=== PATIENT | female | born 1995 | race American Indian/Alaskan Native ===

== ENCOUNTER 2021-05-04 09:10 | Outpatient (CLI) | payer OTHER ==
[2021-05-04] MEDS ORDERED: LACTATED RINGERS 500 ML IV ONE (09:12)
[2021-05-04 11:35] VITALS: BP 139/78
--- NOTE | 2021-05-04 12:52 | Ultrasound Report ---
US OB limited INDICATION: r/o placental abruption, vaginal bleeding. COMPARISON: None available. FINDINGS: position is cephalic and heart rate measures 149 bpm. Placenta is fundal and grade 0. There is no appreciable placental abruption. Signer Name: Latrell Reyna MD Signed: 05/04/2021 12:48 PM Workstation Name: [id number]
== END 2021-05-04 12:10 | disposition home or self-care (01) ==
LOC: EDBD 09:10 → TRG 09:10 → APU 09:11 → TRG 12:10
PROVIDERS: ATTEND Obstetrics & Gynecology
DX: O47.03 False labor before 37 completed weeks of gestation, third trimester (principal); Z3A.29 29 weeks gestation of pregnancy
CPT/HCPCS: 59025; 76815

== ENCOUNTER 2021-07-02 14:35 | Inpatient (IN) | payer OTHER ==
[2021-07-02] MEDS ORDERED: LACTATED RINGERS 1,000 ML ONE (14:42)
[2021-07-02 16:30] LABS: Hematocrit 36.7 % (30.3-42.9); Hemoglobin 12.4 gm/dl (10.1-14.3); Mean Corpuscular HGB Conc 34 % (30-34); Mean Corpuscular Volume 83 fl (79-97); Platelet Count 224 K/mm3 (140-440); Red Blood Count 4.43 M/mm3 (3.65-5.03); Red Cell Distribution Width 16.1 % (13.2-15.2)
[2021-07-02 16:52] LABS: Alanine Aminotransferase 7 units/L (7-56); Uric Acid 3.9 mg/dL (3.5-7.6)
[2021-07-02] MEDS ORDERED: BUTORPHANOL 2 MG/1 ML INJ IV PRN (17:31)
[2021-07-02] MEDS ORDERED: OXYTOCIN 10 UNIT/1 ML INJ IM PRN (17:31)
[2021-07-02] MEDS ORDERED: ACETAMINOPHEN 325 MG TAB PO PRN (17:31)
[2021-07-02] MEDS ORDERED: LIDOCAINE (2%) 20 MG/1 ML VIAL 20 ML MDV INFILTRATI ONE (17:31)
[2021-07-02] MEDS ORDERED: LOPERAMIDE 2 MG CAP PO PRN (17:31)
[2021-07-02] MEDS ORDERED: METHYLERGONOVINE MALEATE 0.2 MG/ML VIAL IM PRN (17:31)
[2021-07-02] MEDS ORDERED: ONDANSETRON 4 MG/2 ML INJ IV PRN (17:31)
[2021-07-02] MEDS ORDERED: MINERAL OIL 30 ML ORAL LIQD PO PRN (17:31)
[2021-07-02] MEDS ORDERED: ePHEDrine SULFATE 50 MG/1 ML INJ IV PRN (17:31)
[2021-07-02] MEDS ORDERED: miSOPROStol 200 MCG TAB PR PRN (17:31)
[2021-07-02] MEDS ORDERED: NALOXONE 0.4 MG/1 ML INJ IV PRN (17:31)
[2021-07-02] MEDS ORDERED: TERBUTALINE 1 MG/1 ML INJ SUB-Q PRN (17:31)
[2021-07-02] MEDS ORDERED: CARBOPROST TROMETHAMINE 250 MCG/1 ML INJ IM PRN (17:31)
[2021-07-02] MEDS ORDERED: DEXTROSE 50% IN WATER (25GM) 50 ML SYRINGE IV PRN (17:37)
--- NOTE | 2021-07-02 17:44 | History and Physical Report ---
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 Weight (lb): 135 BMI: 22.5 BP: 126/ 82 mm Hg Temp: 98.6 Ur. Protein: negative Ur. Glucose: negative Chief Complaint/Current Status: pt. presents for missed period visit; c/o pain on right side of abdomen when sneezing, morning sickness no apetite and bleeding during intercourse. Last pap smear was November 2019 w/normal results per pt. Pt. mentioned that she use to smoke and drink. Pt. mentioned that she has hypertension. Mask, Patient denies fever, cough, shortness of breath and exposure to COVID-19. .............................. .......................................Denae Pagan December 09, 2020 10:50 AM Cervical Cancer Screening Guidelines given to pt. .....................................................................Denae Pagan December 09, 2020 10:59 AM This is a 25 years old female who presents with pelvic pain. The patient presents with RLQ pain and amenorrhea. Patient also complains of nausea and vomiting. Past History : 2 Spont. Ab: 1 # 1 Delivery date: 12/23/2016 Weeks Gestation: 22 Delivery type: Delivery location: [place], [place] Comments: She had severe N/V then had vaginal bleeding and SROM, Admitted for 2days, cervix 4-5cm then given "contraction medicine" and delivered. Past Medical History: Reviewed and updated today: Hypertension: (08/2020) She wasn't feeling well, went to ED in [place], elevated BP and started on ?nifidepine. Ran out of medication however PCP did not given her a refill Past Surgical History: Reviewed and updated today: Negative Past Surgical History Family History Summary: Other Family Member - Has No Family History of Uterine Cancer - Entered On: 12/09/2020 Other Family Member - Has No Family History of Stomach Cancer - Entered On: 12/09/2020 Other Family Member - Has No Family History of Spontaneous DVT-PE - Entered On: 12/09/2020 Other Family Member - Has No Family History of Small Bowel Cancer - Entered On: 12/09/2020 Other Family Member - Has No Family History of Pancreatic Cancer - Entered On: 12/09/2020 Other Family Member - Has No Family History of Kidney/Urinary Tract Cancer - Entered On: 12/09/2020 Other Family Member - Has No Family History of Colon Cancer - Entered On: 12/09/2020 Other Family Member - Has No Family History of Breast Cancer - Entered On: 12/09/2020 Other Family Member - Has No Family History of Brain Cancer - Entered On: 12/09/2020 Other Family Member - Has No Family History of Biliary Tract Cancer - Entered On: 12/09/2020 MGM - Has Family History of Ovarian Cancer - Diagnosed and at age 61. Mother negative BRCA - Entered On: 12/09/2020 Social History: Patient is single Smoking History: Patient is a former smoker. Risk Factors: Smoked Tobacco Use: Former smoker Cigarettes: Yes Year Quit: 2020 Years Since Last Quit: 0 HIV High Risk Behavior: no Exercise: no Seatbelt Use: 100 % No Dietary Counseling Reason: pn yes Alcohol Use: no Drug Use: no Past Medical History Surgery (Non-rickshaw driver): Negative Past Surgical History Abnormal PAP: negative Social Hx: Patient is single Smoking History: Patient is a former smoker. Infection History Hx of STD: none HIV Risk Eval: no Varicella/Chicken Pox Status: Previous Disease TB Risk: no Genetic History Congenital Heart Defect: Mom: no Dad: no Odin Disease: Mom: no Dad: no Thalassemia Mom: no Dad: no Neural Tube Defect Mom: no Dad: no Down's Syndrome Mom: no Dad: no Sadi-Sachs Mom: no Dad: no Sickle Cell Disease/Trait Mom: no Dad: no Hemophilia Mom: no Dad: no Muscular Dystrophy Mom: no Dad: no Cystic Fibrosis Mom: no Dad: no Shadia Chorea Mom: no Dad: no Mental Retardation Mom: no Dad: no Fragile X Mom: no Dad: no Other Genetic/Chromosomal Disorder Mom: no Dad: no Child w/other defect Mom: no Dad: no Enviromental Exposures Enviromental Exposures Reviewed Xray Exposure: no Medication, drug, or alcohol use since LMP: no Chemical/Other Exposure: no Exposure to Cat Liter: yes Hx of Parvovirus (Fifth Disease): no Occupational Exposure to Children: other Comments: Works from home Active Medications: None Current Allergies (reviewed today): No known allergies Past History Past Medical History: hypertension, other (see HPI) Past Surgical History: no surgical history, other (see HPI) 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: other (see HPI) Family/Genetic History: cancer, other (see HPI) Social history: single, smoking (former smoker), other (see HPI) - Obstetrical History Expected Date of Delivery: 07/25/21 Actual Gestation: 36 Week(s) 5 Day(s) : 2 Para: 1 Hx # Term Pregnancies: 0 Number of Pregnancies: 1 Spontaneous Abortions: 0 Induced : 0 Number of Living Children: 0 Medications and Allergies Allergies Allergy/AdvReac Type Severity Reaction Status Date / Time No Known Allergies Allergy Verified 05/04/21 09:24 Home Medications Medication Instructions Recorded Confirmed Last Taken Type Aspirin [Aspirin BABY CHEW TAB] 81 mg PO DAILY 05/04/21 05/04/21 05/03/21 History No.137/Iron/Folic Acd 1 tab PO DAILY 05/04/21 05/04/21 05/03/21 History [[facility] Vitamins Tablet] Active Meds: Active Medications Carboprost Tromethamine (Carboprost Tromethamine 250 Mcg/1 Ml Inj) 250 mcg IM ONCE PRN PRN Reason: Uterine Bleeding Ephedrine Sulfate (Ephedrine Sulfate 50 Mg/1 Ml Inj) 10 mg IV Q2M PRN PRN Reason: Hypotension Oxytocin/Sodium Chloride (Pitocin/Ns 30 Unit/500ml) 30 units in 500 mls @ 2 mls/hr IV TITR JERO; Protocol Lactated Ringer's (Lactated Ringers) 1,000 mls @ 125 mls/hr IV DIRECT JERO Oxytocin/Sodium Chloride (Pitocin/Ns 30 Unit/500ml) 30 units in 500 mls @ 40 mls/hr IV TITR JERO; Protocol Lidocaine (Lidocaine (2%) 20 Mg/1 Ml Vial 20 Ml Mdv) 20 ml INFILTRATI ONCE ONE Stop: 07/02/21 17:32 Loperamide HCl (Loperamide 2 Mg Cap) 2 mg PO ONCE PRN PRN Reason: give with Hemabate Methylergonovine Maleate (Methylergonovine Maleate 0.2 Mg/Ml Vial) 0.2 mg IM ONCE PRN PRN Reason: Uterine Bleeding Mineral Oil (Mineral Oil 30 Ml Oral Liqd) 30 ml PO QHS PRN PRN Reason: Constipation Misoprostol (Misoprostol 200 Mcg Tab) 800 mcg NE ONCE PRN PRN Reason: Uterine Bleeding Oxytocin (Oxytocin 10 Unit/1 Ml Inj) 10 unit IM ONCE PRN PRN Reason: Uterine Bleeding Terbutaline Sulfate (Terbutaline 1 Mg/1 Ml Inj) 0.25 mg SUB-Q ONCE PRN PRN Reason: Hyperstimulation/Hypertonicity Review of Systems All systems: negative Genitourinary: contractions - Vital Signs Vital signs: Vital Signs Pulse Ox 90 05/04/21 12:06 Temp Pulse Resp BP Pulse Ox 98.3 F 90 134/94 98 07/02/21 15:16 07/02/21 17:38 07/02/21 17:38 07/02/21 17:34 - Physical Exam Breasts: Positive: deferred Cardiovascular: Regular rate Lungs: Positive: Normal air movement Abdomen: Positive: normal appearance, soft. Negative: distention, tenderness, guarding Genitourinary (Female): Positive: normal external genitalia, normal perenium Vulva: both: normal Vagina: Positive: normal moisture Uterus: Positive: normal size, normal contour, other (gravid) Anus/Rectum: Positive: normal perianal skin, heme negative Extremities: Positive: normal - Obstetrical FHR: auscultation normal, category 1 Uterine Contraction Monitor Mode: External Cervical Dilatation: 3.5 Cervical Effacement Percentage: 80 station: -2 Uterine Tone Measurement Phase: Resting Results Result Diagrams: 07/02/21 15:55 07/02/21 15:55 Abnormal lab results 07/02/21 07/02/21 Range/Units 15:55 15:55 RDW 16.1 H (13.2-15.2) % Creatinine 0.5 L (0.6-1.2) mg/dL Lactate Dehydrogenase 296 H (91-180) units/L All other labs normal. Tests: (1) Ct, Ng, Trich vag by SISSY ([id number]) Order Note: Clinical Information: SRC:VR SRC:UR Chlamydia by SISSY [A] Positive Negative *1------> treated on 06/29/21, pt confirms she took full one time dose of 2 pills Gonococcus by SISSY Negative Negative *2 Trich vag by SISSY [A] Positive Negative *3-------> treated 06/29/21, pt confirms she took full one time dose of 4 pills Tests: (2) Strep Gp B SISSY ([id number]) ! Strep Gp B SISSY Negative Negative *4 Tests: (1) Profile I ([id number]) HBsAg Screen Negative Negative *1 RPR Non Reactive Non Reactive *2 Rubella Antibodies, IgG 5.36 index Immune >0.99 *3 Non-immune <0.90 Equivocal 0.90 - 0.99 Immune >0.99 ABO Grouping B *4 Rh Factor Positive *5 Please note: Prior records for this patient's ABO / Rh type are not available for additional verification. Antibody Screen Negative Negative *6 WBC 6.3 x10E3/uL 3.4-10.8 *7 RBC 4.56 x10E6/uL 3.77-5.28 *8 Hemoglobin 12.8 g/dL 11.1-15.9 *9 Hematocrit 38.7 % 34.0-46.6 *10 MCV 85 fL 79-97 *11 MCH 28.1 pg 26.6-33.0 *12 MCHC 33.1 g/dL 31.5-35.7 *13 RDW 13.1 % 11.7-15.4 *14 Platelets 228 x10E3/uL 150-450 *15 Neutrophils 65 % Not Estab. *16 Lymphs 24 % Not Estab. *17 Monocytes 8 % Not Estab. *18 Eos 2 % Not Estab. *19 Basos 0 % Not Estab. *20 ! Immature Cells <No Reported Value> *21 Neutrophils (Absolute) 4.1 x10E3/uL 1.4-7.0 *22 Lymphs (Absolute) 1.5 x10E3/uL 0.7-3.1 *23 Monocytes(Absolute) 0.5 x10E3/uL 0.1-0.9 *24 Eos (Absolute) 0.2 x10E3/uL 0.0-0.4 *25 Baso (Absolute) 0.0 x10E3/uL 0.0-0.2 *26 ! Immature Granulocytes 1 % Not Estab. *27 ! Immature Grans (Abs) 0.0 x10E3/uL 0.0-0.1 *28 ! NRBC <No Reported Value> *29 Hematology Comments: <No Reported Value> *30 Tests: (2) Comp. Metabolic Panel (14) ([id number]) Glucose 68 mg/dL 65-99 *31 BUN 8 mg/dL 6-20 *32 Creatinine [L] 0.55 mg/dL 0.57-1.00 *33 ! eGFR If NonAfricn Am 131 mL/min/1.73 >59 *34 ! eGFR If Africn Am 151 mL/min/1.73 >59 *35 [facility] currently reports eGFR in compliance with the current recommendations of the National Kidney Foundation. [facility] will update reporting as new guidelines are published from the NKF-ASN Task force. BUN/Creatinine Ratio 15 01- *36 Sodium 136 mmol/L 134-144 *37 Potassium 4.3 mmol/L 3.5-5.2 *38 Chloride 102 mmol/L 96-106 *39 Carbon Dioxide, Total 21 mmol/L 20-29 *40 Calcium 10.2 mg/dL 8.7-10.2 *41 Protein, Total 7.4 g/dL 6.0-8.5 *42 Albumin 4.4 g/dL 3.9-5.0 *43 Globulin, Total 3.0 g/dL 1.5-4.5 *44 A/G Ratio 1.5 1.2-2.2 *45 Bilirubin, Total 0.2 mg/dL 0.0-1.2 *46 Alkaline Phosphatase 61 IU/L 48-121 *47 Effective January 13, 2021 Alkaline Phosphatase reference interval will be changing to: Age Male Female 0 - 5 days 47 - 127 47 - 127 6 - 10 days 29 - 242 29 - 242 11 - 20 days 109 - 357 109 - 357 21 - 30 days 94 - 494 94 - 494 1 - 2 months 149 - 539 149 - 539 3 - 6 months 131 - 452 131 - 452 7 - 11 months 117 - 401 117 - 401 12 months - 6 years 158 - 369 158 - 369 7 - 12 years 150 - 409 150 - 409 13 years 156 - 435 78 - 227 14 years 114 - 375 64 - 161 15 years 88 - 279 56 - 134 16 years 74 - 207 51 - 121 17 years 63 - 161 47 - 113 18 - 20 years 51 - 125 42 - 106 >20 years 44 - 121 44 - 121 AST (SGOT) 13 IU/L 0-40 *48 ALT (SGPT) 12 IU/L 0-32 *49 Tests: (3) Creatinine Clearance ([id number]) Creatinine, Urine 257.9 mg/dL Not Estab. *50 Creatinine, Ur 24hr [L] 774 mg/24 hr 800-1800 *51 Creatinine Clearance 98 mL/min 88-128 *52 The above range is based on 1.73 square meter average body surface area. Tests: (4) Protein Total, Qn, 24-Hr Urine ([id number]) Protein,Total,Urine 42.9 mg/dL Not Estab. *53 Prot,24hr calculated 129 mg/24 hr 30-150 *54 Tests: (5) HB Solu + Rflx Frac ([id number]) Hemoglobin (Hgb) Solubility Negative Negative *55 Tests: (6) HIV Ag/Ab with Reflex ([id number]) HIV Screen 4th Generation wRfx Non Reactive Non Reactive *56 Tests: (7) HCV Antibody reflex to SISSY ([id number]) HCV Ab 0.2 s/co ratio 0.0-0.9 *57 Tests: (8) Interpretation: ([id number]) ! Interpretation: SPRCS *58 Negative Not infected with HCV, unless recent infection is suspected or other evidence exists to indicate HCV infection. Assessment and Plan Pt presents for direct admit from [facility] for IOL. Pt confirms she has not had sexual intercourse since completing STD treatment on 06/29/21. Per Dr. Marie, BP today 159/118 and 148/108 with pt c/o blurred vision. US today WNL and cephalic, EFW 6lbs 4oz on 06/18; Dr. Marie to fax consult note to unit. Pt denies all complaints except contractions at this time. SVE performed. BP elevated s/p SVE. Repeat BP 15 mins later reviewed and stable. External monitors adjusted; Cat 1 FHT's. POC d/w pt. Questions encouraged and addressed. Pt verbalizes understanding and agrees to POC. RN at bedside verbalizes understanding and agrees to POC. Dr Trejo aware. - Patient Problems (1) 36 to 37 weeks gestation of Current Visit: Yes Status: Acute Plan to address problem: admit to labor draw admission labs continuous monitoring Pitocin per protocol anticipate (2) Hypertension affecting in third trimester Current Visit: Yes Status: Acute Plan to address problem: monitor BP and for ssx of worsening condition Preeclampsia labs ordered for admission Labetalol 100mg BID ordered (3) Gestational diabetes mellitus (GDM) in childbirth, diet controlled Current Visit: Yes Status: Acute Plan to address problem: Accuchecks q6h Sliding scale insulin ordered Nutritional consult
[2021-07-02] MEDS ORDERED: OXYTOCIN DRIP 30 UNITS/500 ML BAG IV SCH ×2 (18:00)
[2021-07-02] MEDS ORDERED: INSULIN REGULAR, HUMAN 100 UNITS/1 ML SUB-Q SCH (18:00)
[2021-07-02 18:48] LABS: Bacteria,Urine 1+ /HPF (Negative); Mucus,Urine FEW /HPF; RBC,Urine < 1.0 /HPF (0.0-6.0)
[2021-07-02 18:49] LABS: Color,Urine Colorless (Yellow)
[2021-07-02 18:54] LABS: Bilirubin,Urine Negative (Negative)
[2021-07-02 18:55] LABS: Blood,Urine Trace (Negative)
[2021-07-02 18:57] LABS: Urobilinogen,Urine < 2.0 mg/dL (<2.0)
[2021-07-02 19:23] LABS: Creatinine,Urine 45.8 mg/dL (0.1-20.0); Protein/Creatinine Ratio,Urine 0.31
[2021-07-02] MEDS: LACTATED RINGERS 1,000 ML IV SCH (21:38)
[2021-07-02] MEDS: NalbUPHINE 10 MG/1 ML INJ IV PRN (23:10)
[2021-07-03] MEDS ORDERED: MAGNESIUM SULFATE 4 GM/100 ML BAG IV ONE (04:23)
[2021-07-03] MEDS: MAGNESIUM SULFATE 40GM/1000ML 40 GM/1,000 ML BAG IV SCH (05:34)
--- NOTE | 2021-07-03 07:55 | Progress Note ---
Assessment and Plan A: Upon entering room, pt resting right lateral in bed. +FM, denies vaginal bleeding, and LOF, chest pain, SOB, headaches, blurred vision, spots before eyes, RUQ, and NVD. Cat 1 tracing. Magnesium, LR and pitocin infusing @4mu. Mild range BPs. Intact Del Toro draining clear yellow urine. SVE: unchanged (/-2 @0245 per RN). cHTN superimposed on Pre E. P: Continue titration of pitocin (order changed from low dose pitocin to standard dose, 4x4). Monitor BG per protocol. Increase labetalol to 200mg BID. Strict I&Os. Monitor for signs and symptoms of worsening preeclampsia. Pt declining epidural. IV analgesia for pain management. Position change to high [place]. Anticipate . Subjective - Subjective Date of service: 07/03/21 (0745) Principal diagnosis: IUP @ 36.6 wks, IOL d/t GDM, superimposed preeclampsia w/ severe features Patient reports: movement normal Objective - Vital Signs Vital Signs: Vital Signs - 12hr 07/02/21 07/02/21 07/02/21 19:48 19:53 19:58 Temperature Pulse Rate 107 H 103 H 96 H Blood Pressure 145/90 O2 Sat by Pulse 98 97 97 Oximetry 07/02/21 07/02/21 07/02/21 20:03 20:08 20:13 Temperature Pulse Rate 106 H 103 H 107 H Blood Pressure 133/90 O2 Sat by Pulse 97 97 97 Oximetry 07/02/21 07/02/21 07/02/21 20:18 20:22 20:23 Temperature Pulse Rate 99 H 95 H 99 H Blood Pressure 131/89 O2 Sat by Pulse 97 96 Oximetry 07/02/21 07/02/21 07/02/21 20:28 20:33 20:38 Temperature Pulse Rate 101 H 99 H 102 H Blood Pressure 138/84 O2 Sat by Pulse 95 96 97 Oximetry 07/02/21 07/02/21 07/02/21 20:43 20:48 20:53 Temperature Pulse Rate 104 H 103 H 100 H Blood Pressure 143/89 O2 Sat by Pulse 96 97 98 Oximetry 07/02/21 07/02/21 07/02/21 20:58 21:03 21:08 Temperature Pulse Rate 110 H 107 H 103 H Blood Pressure 134/82 O2 Sat by Pulse 97 97 97 Oximetry 07/02/21 07/02/21 07/02/21 21:13 21:18 21:22 Temperature Pulse Rate 101 H 98 H 93 H Blood Pressure 139/90 O2 Sat by Pulse 97 98 Oximetry 07/02/21 07/02/21 07/02/21 21:23 21:28 21:41 Temperature Pulse Rate 102 H 100 H 115 H Blood Pressure O2 Sat by Pulse 97 97 98 Oximetry 07/02/21 07/02/21 07/02/21 21:46 21:51 21:56 Temperature Pulse Rate 91 H 93 H 95 H Blood Pressure O2 Sat by Pulse 97 98 98 Oximetry 07/02/21 07/02/21 07/02/21 22:01 22:06 22:08 Temperature Pulse Rate 94 H 93 H 91 H Blood Pressure 139/92 O2 Sat by Pulse 99 98 Oximetry 07/02/21 07/02/21 07/02/21 22:11 22:16 22:21 Temperature Pulse Rate 101 H 94 H 102 H Blood Pressure O2 Sat by Pulse 98 97 98 Oximetry 07/02/21 07/02/21 07/02/21 22:26 22:31 22:36 Temperature Pulse Rate 94 H 95 H 99 H Blood Pressure O2 Sat by Pulse 97 97 98 Oximetry 07/02/21 07/02/21 07/02/21 22:39 22:41 22:46 Temperature Pulse Rate 97 H 105 H 102 H Blood Pressure 144/93 O2 Sat by Pulse 98 97 Oximetry 07/02/21 07/02/21 07/02/21 22:51 22:56 23:00 Temperature 98.3 F Pulse Rate 97 H 98 H Blood Pressure O2 Sat by Pulse 97 98 Oximetry 07/02/21 07/02/21 07/02/21 23:01 23:06 23:09 Temperature Pulse Rate 97 H 97 H 101 H Blood Pressure 162/104 O2 Sat by Pulse 97 97 Oximetry 07/02/21 07/02/21 07/02/21 23:11 23:16 23:21 Temperature Pulse Rate 102 H 95 H 109 H Blood Pressure O2 Sat by Pulse 97 96 97 Oximetry 07/02/21 07/02/21 07/02/21 23:26 23:30 23:31 Temperature Pulse Rate 110 H 98 H 101 H Blood Pressure 146/97 O2 Sat by Pulse 97 97 Oximetry 07/02/21 07/02/21 07/02/21 23:36 23:40 23:41 Temperature Pulse Rate 109 H 95 H 90 Blood Pressure 148/92 O2 Sat by Pulse 97 96 Oximetry 07/02/21 07/02/21 07/02/21 23:46 23:51 23:55 Temperature Pulse Rate 92 H 93 H 97 H Blood Pressure 156/101 O2 Sat by Pulse 97 97 Oximetry 07/02/21 07/03/21 07/03/21 23:56 00:01 00:06 Temperature Pulse Rate 104 H 94 H 95 H Blood Pressure O2 Sat by Pulse 96 96 96 Oximetry 07/03/21 07/03/21 07/03/21 00:09 00:11 00:16 Temperature Pulse Rate 94 H 94 H 91 H Blood Pressure 145/91 158/95 O2 Sat by Pulse 96 96 Oximetry 07/03/21 07/03/21 07/03/21 00:21 00:25 00:26 Temperature Pulse Rate 94 H 90 98 H Blood Pressure 152/90 O2 Sat by Pulse 96 96 Oximetry 07/03/21 07/03/21 07/03/21 00:31 00:36 00:40 Temperature Pulse Rate 89 104 H 89 Blood Pressure 156/96 O2 Sat by Pulse 96 96 Oximetry 07/03/21 07/03/21 07/03/21 00:41 00:46 00:51 Temperature Pulse Rate 95 H 96 H 96 H Blood Pressure O2 Sat by Pulse 96 96 96 Oximetry 07/03/21 07/03/21 07/03/21 00:55 00:56 01:01 Temperature Pulse Rate 95 H 100 H 95 H Blood Pressure 154/97 O2 Sat by Pulse 95 96 Oximetry 07/03/21 07/03/21 07/03/21 01:06 01:10 01:11 Temperature Pulse Rate 94 H 89 90 Blood Pressure 156/95 O2 Sat by Pulse 96 97 Oximetry 07/03/21 07/03/21 07/03/21 01:16 01:21 01:25 Temperature Pulse Rate 88 92 H 107 H Blood Pressure 144/90 O2 Sat by Pulse 96 96 Oximetry 07/03/21 07/03/21 07/03/21 01:26 01:31 01:36 Temperature Pulse Rate 85 91 H 109 H Blood Pressure O2 Sat by Pulse 97 96 97 Oximetry 07/03/21 07/03/21 07/03/21 01:40 01:41 01:46 Temperature Pulse Rate 93 H 101 H 92 H Blood Pressure 147/97 O2 Sat by Pulse 96 97 Oximetry 07/03/21 07/03/21 07/03/21 01:51 01:55 01:56 Temperature Pulse Rate 107 H 106 H 95 H Blood Pressure 138/88 O2 Sat by Pulse 98 97 Oximetry 07/03/21 07/03/21 07/03/21 02:04 02:09 02:11 Temperature Pulse Rate 124 H 96 H 93 H Blood Pressure 158/102 O2 Sat by Pulse 98 98 Oximetry 07/03/21 07/03/21 07/03/21 02:14 02:19 02:24 Temperature Pulse Rate 102 H 98 H 97 H Blood Pressure O2 Sat by Pulse 97 97 96 Oximetry 07/03/21 07/03/21 07/03/21 02:25 02:29 02:34 Temperature Pulse Rate 96 H 99 H 100 H Blood Pressure 153/83 O2 Sat by Pulse 96 97 Oximetry 07/03/21 07/03/21 07/03/21 02:39 02:40 02:44 Temperature Pulse Rate 110 H 99 H 104 H Blood Pressure 151/90 O2 Sat by Pulse 96 95 Oximetry 07/03/21 07/03/21 07/03/21 02:49 02:54 02:55 Temperature Pulse Rate 100 H 99 H 100 H Blood Pressure 136/83 O2 Sat by Pulse 95 95 Oximetry 07/03/21 07/03/21 07/03/21 02:59 03:00 03:04 Temperature 98.4 F Pulse Rate 100 H 100 H Blood Pressure O2 Sat by Pulse 96 97 Oximetry 07/03/21 07/03/21 07/03/21 03:09 03:10 03:14 Temperature Pulse Rate 103 H 111 H 105 H Blood Pressure 144/89 O2 Sat by Pulse 98 97 Oximetry 07/03/21 07/03/21 07/03/21 03:19 03:24 03:25 Temperature Pulse Rate 100 H 105 H 98 H Blood Pressure 155/112 O2 Sat by Pulse 96 96 Oximetry 07/03/21 07/03/21 07/03/21 03:29 03:34 03:39 Temperature Pulse Rate 106 H 98 H 129 H Blood Pressure O2 Sat by Pulse 97 98 98 Oximetry 07/03/21 07/03/21 07/03/21 03:41 03:43 03:44 Temperature Pulse Rate 144 H 100 H 102 H Blood Pressure 195/94 171/91 O2 Sat by Pulse 97 Oximetry 07/03/21 07/03/21 07/03/21 03:49 03:54 03:59 Temperature Pulse Rate 98 H 111 H 100 H Blood Pressure 174/102 160/97 O2 Sat by Pulse 97 97 97 Oximetry 07/03/21 07/03/21 07/03/21 04:00 04:04 04:05 Temperature Pulse Rate 99 H 99 H 96 H Blood Pressure 161/105 152/84 O2 Sat by Pulse 96 Oximetry 07/03/21 07/03/21 07/03/21 04:09 04:10 04:14 Temperature Pulse Rate 105 H 100 H 102 H Blood Pressure 150/90 O2 Sat by Pulse 96 96 Oximetry 07/03/21 07/03/21 07/03/21 04:19 04:24 04:26 Temperature Pulse Rate 104 H 105 H 105 H Blood Pressure 148/86 O2 Sat by Pulse 96 96 Oximetry 07/03/21 07/03/21 07/03/21 04:29 04:34 04:39 Temperature Pulse Rate 101 H 98 H 98 H Blood Pressure O2 Sat by Pulse 96 96 95 Oximetry 07/03/21 07/03/21 07/03/21 04:40 04:44 04:49 Temperature Pulse Rate 105 H 102 H 122 H Blood Pressure 137/83 O2 Sat by Pulse 96 96 Oximetry 07/03/21 07/03/21 07/03/21 04:54 04:55 04:56 Temperature Pulse Rate 116 H 114 H 107 H Blood Pressure 132/82 139/87 O2 Sat by Pulse 98 Oximetry 07/03/21 07/03/21 07/03/21 04:59 05:00 05:04 Temperature 98.2 F Pulse Rate 109 H 111 H Blood Pressure O2 Sat by Pulse 97 98 Oximetry 07/03/21 07/03/21 07/03/21 05:09 05:14 05:19 Temperature Pulse Rate 121 H 128 H 114 H Blood Pressure O2 Sat by Pulse 98 97 97 Oximetry 07/03/21 07/03/21 07/03/21 05:24 05:25 05:29 Temperature Pulse Rate 112 H 114 H 111 H Blood Pressure 131/86 O2 Sat by Pulse 97 97 Oximetry 07/03/21 07/03/21 07/03/21 05:34 05:39 05:40 Temperature Pulse Rate 112 H 103 H 106 H Blood Pressure 127/82 O2 Sat by Pulse 97 96 Oximetry 07/03/21 07/03/21 07/03/21 05:44 05:49 05:54 Temperature Pulse Rate 107 H 97 H 105 H Blood Pressure O2 Sat by Pulse 96 96 97 Oximetry 07/03/21 07/03/21 07/03/21 05:55 05:59 06:03 Temperature Pulse Rate 109 H 98 H 102 H Blood Pressure 125/81 O2 Sat by Pulse 95 94 Oximetry 07/03/21 07/03/21 07/03/21 06:04 06:09 06:10 Temperature Pulse Rate 107 H 110 H 107 H Blood Pressure 122/77 O2 Sat by Pulse 95 97 Oximetry 07/03/21 07/03/21 07/03/21 06:14 06:19 06:24 Temperature Pulse Rate 113 H 99 H 100 H Blood Pressure O2 Sat by Pulse 96 95 96 Oximetry 07/03/21 07/03/21 07/03/21 06:26 06:29 06:34 Temperature Pulse Rate 98 H 110 H 108 H Blood Pressure 122/74 O2 Sat by Pulse 97 97 Oximetry 07/03/21 07/03/21 07/03/21 06:39 06:41 06:44 Temperature Pulse Rate 111 H 106 H 110 H Blood Pressure 129/85 O2 Sat by Pulse 96 97 Oximetry 07/03/21 07/03/21 07/03/21 06:49 06:54 06:56 Temperature Pulse Rate 104 H 105 H 103 H Blood Pressure 134/77 O2 Sat by Pulse 95 95 Oximetry 07/03/21 07/03/21 07/03/21 06:59 07:00 07:04 Temperature Pulse Rate 103 H 105 H 116 H Blood Pressure O2 Sat by Pulse 95 94 96 Oximetry 07/03/21 07/03/21 07/03/21 07:09 07:10 07:14 Temperature Pulse Rate 108 H 104 H 103 H Blood Pressure 126/68 O2 Sat by Pulse 95 95 Oximetry 07/03/21 07/03/21 07/03/21 07:19 07:24 07:25 Temperature Pulse Rate 105 H 123 H 117 H Blood Pressure 130/76 O2 Sat by Pulse 95 98 Oximetry 07/03/21 07/03/21 07/03/21 07:29 07:34 07:39 Temperature Pulse Rate 121 H 119 H 114 H Blood Pressure O2 Sat by Pulse 97 98 98 Oximetry 07/03/21 07:41 Temperature Pulse Rate 107 H Blood Pressure 145/92 O2 Sat by Pulse Oximetry - Exam Breasts: deferred Cardiovascular: Regular rate Lungs: Clear to auscultation, Normal air movement Abdomen: Present: normal appearance Vulva: both: normal Uterus: Present: normal FHR: auscultation normal, category 1 Uterine Contraction Monitor Mode: Palpation Cervical Dilatation: 5 Cervical Effacement Percentage: 60 station: -2 Uterine Contraction Frequency (min): q5-8 min Uterine Contraction Duration: 30-45 seconds Uterine Contraction Pattern: Irregular Uterine Tone Measurement Phase: Resting Uterine Contraction Intensity: Mild Extremities: normal - Labs Labs: Abnormal Labs 07/02/21 07/02/21 07/02/21 15:55 15:55 18:30 RDW 16.1 H Creatinine 0.5 L POC Glucose Lactate Dehydrogenase 296 H Urine Creatinine 45.8 H Urine Total Protein 14 H 07/02/21 20:07 RDW Creatinine POC Glucose 107 H Lactate Dehydrogenase Urine Creatinine Urine Total Protein Laboratory Results - last 24 hr 07/02/21 07/02/21 07/02/21 15:55 15:55 15:55 WBC 8.4 RBC 4.43 Hgb 12.4 Hct 36.7 MCV 83 MCH 28 MCHC 34 RDW 16.1 H Plt Count 224 Creatinine 0.5 L Estimated GFR > 60 POC Glucose Uric Acid 3.9 AST 16 ALT 7 Lactate Dehydrogenase 296 H Urine Color Urine Turbidity Urine pH Ur Specific [place] Urine Protein Urine Glucose (UA) Urine Ketones Urine Blood Urine Nitrite Ur Reducing Substances Urine Bilirubin Urine Ictotest Urine Urobilinogen Ur Leukocyte Esterase Urine WBC (Auto) Urine RBC (Auto) U Epithel Cells (Auto) Urine Bacteria (Auto) Urine Mucus Urine Creatinine Protein/Creatinin Ratio Urine Total Protein Syphilis IgG/IgM Ab Blood Type B POSITIVE Antibody Screen Negative 07/02/21 07/02/21 07/02/21 18:30 18:30 19:57 WBC RBC Hgb Hct MCV MCH MCHC RDW Plt Count Creatinine Estimated GFR POC Glucose Uric Acid AST ALT Lactate Dehydrogenase Urine Color Colorless Urine Turbidity Clear Urine pH 7.0 Ur Specific [place] 1.010 Urine Protein 30 mg/dl Urine Glucose (UA) Negative Urine Ketones Trace Urine Blood Trace Urine Nitrite Negative Ur Reducing Substances Not Reportable Urine Bilirubin Negative Urine Ictotest Not Reportable Urine Urobilinogen < 2.0 Ur Leukocyte Esterase Moderate Urine WBC (Auto) 6.0 Urine RBC (Auto) < 1.0 U Epithel Cells (Auto) 13.0 Urine Bacteria (Auto) 1+ Urine Mucus Few Urine Creatinine 45.8 H Protein/Creatinin Ratio 0.31 Urine Total Protein 14 H Syphilis IgG/IgM Ab Nonreactive Blood Type Antibody Screen 07/02/21 07/03/21 20:07 02:05 WBC RBC Hgb Hct MCV MCH MCHC RDW Plt Count Creatinine Estimated GFR POC Glucose 107 H 79 Uric Acid AST ALT Lactate Dehydrogenase Urine Color Urine Turbidity Urine pH Ur Specific [place] Urine Protein Urine Glucose (UA) Urine Ketones Urine Blood Urine Nitrite Ur Reducing Substances Urine Bilirubin Urine Ictotest Urine Urobilinogen Ur Leukocyte Esterase Urine WBC (Auto) Urine RBC (Auto) U Epithel Cells (Auto) Urine Bacteria (Auto) Urine Mucus Urine Creatinine Protein/Creatinin Ratio Urine Total Protein Syphilis IgG/IgM Ab Blood Type Antibody Screen
[2021-07-03] MEDS: NalbUPHINE 10 MG/1 ML INJ IV PRN ×2 (08:48→10:50)
--- NOTE | 2021-07-03 12:42 | Event Note ---
Date: 07/03/21 (AROM clear fluid) AROM clear fluid. Cerivical exam 7.5/80/0. Category 1 EFM. Will keep Pitocin at 20mu for now. Consider FSE and IUPC if cervix remains unchanged in 2-3 hours. Anticipate .
[2021-07-03] MEDS: LACTATED RINGERS 1,000 ML IV SCH ×2 (12:48→21:51)
--- NOTE | 2021-07-03 13:43 | Procedure Note ---
OB Delivery Note - Delivery Date of Delivery: 07/03/21 Lifestyle Block Farmer: RAIN ROBLES (Tara Humphreys) Estimated blood loss: other (600) - Vaginal Delivery presentation: vertex Delivery position: OA Intrapartum events: preeclampsia, other(please specify) (GDM diet controlled) Delivery induction: oxytocin Delivery augmentation: rupture of membranes, pitocin Delivery monitor: external FHT, external uterine Route of delivery: Delivery placenta: spontaneous Delivery cord: nuchal cord, 3 umbilical vessels Episiotomy: none Delivery laceration: none, other (bilateral labial abrasions) Anesthesia: intravenous Delivery comments: Called to bedside by RN pt endorsing continuous pressure. Cat 1 tracing. c/c/+1. VSS with the exception of persistent maternal tachycardia. SVE: c/c/+1 @1310. Pushing initiated with contractions with excellent maternal effort. of vigorous infant male @1321, loose nuchal x1 around neck reduced, placed skin to skin with maternal abdomen. Delayed cord clamping x90 seconds following pulsation of cord, clamped and cut by supportive partner. Brisk vaginal bleeding noted immediately following delivery of , delivery of [place] placenta @1325. Fundus firm, midline, 1 below umbilicus, no clots, bleeding slowed. Bilateral labial abrasions hemostatic. EBL: 600mL. Del Toro placed @1330. Consulted with MD James regarding maternal tachycardia. Order for EKG placed. Mother and in stable condition left in recovery of primary RN and MEHR[facility] team @1340. Sponges and instruments counted with RN X2 and correct X2. -Rain Robles CNM & Tara Humphreys. MD James present for delivery. - A at 1 minute: 8 ([place]) at 5 minutes: 9 Gender: Male
[2021-07-03] MEDS ORDERED: LANOLIN/ZINC/DIMETHICONE (LANSINOH) 7 GM TP PRN ×2 (16:21)
[2021-07-03] MEDS ORDERED: diphenhydrAMINE 25 MG CAP PO PRN (16:21)
[2021-07-03] MEDS ORDERED: MAGNESIUM HYDROXIDE (MOM) ORAL LIQD UDC PO PRN (16:21)
[2021-07-03] MEDS ORDERED: miSOPROStol 100 MCG TAB PR PRN (16:21)
[2021-07-03] MEDS ORDERED: ACETAMINOPHEN 500 MG TAB PO PRN (16:21)
[2021-07-03] MEDS ORDERED: oxyCODONE /ACETAMINOPHEN 5-325MG TAB PO PRN (16:21)
[2021-07-03] MEDS ORDERED: PROMETHAZINE 25 MG RECT SUPP PR PRN (16:21)
[2021-07-03] MEDS ORDERED: BENZOCAINE/MENTHOL 20/0.5% TOP SPRAY 56 GM TP PRN (16:21)
[2021-07-03] MEDS ORDERED: WITCH HAZEL/ GLYCERIN PAD TP PRN (16:21)
[2021-07-03] MEDS ORDERED: ONDANSETRON 4 MG/2 ML INJ IV PRN (16:21)
[2021-07-03] MEDS ORDERED: PROMETHAZINE 25 MG TAB PO PRN (16:21)
[2021-07-03] MEDS ORDERED: OXYTOCIN DRIP 30 UNITS/500 ML BAG IV SCH (17:00)
[2021-07-03] MEDS: DOCUSATE SODIUM 100 MG CAP PO SCH (21:36)
[2021-07-04] MEDS: MAGNESIUM SULFATE 40GM/1000ML 40 GM/1,000 ML BAG IV SCH (00:20)
[2021-07-04] MEDS: IBUPROFEN 800 MG TAB PO SCH ×6 (02:37→22:03)
[2021-07-04] MEDS ORDERED: TETANUS,DIPH,PERTUSS(ACELL) VACCINE 0.5 ML SYRINGE IM ONE (06:00)
[2021-07-04 06:14] LABS: Hematocrit 30.3 % (30.3-42.9); Hemoglobin 9.9 gm/dl (10.1-14.3)
--- NOTE | 2021-07-04 09:56 | Progress Note ---
Assessment and Plan A: 25 y.o. s/p , cHTN superimposed on Pre E. - Patient Problems (1) Tachycardia Current Visit: Yes Status: Acute Plan to address problem: EKG completed on 07/03: WNL. Tachycardia resolving. Will continue to monitor. (2) Pre-eclampsia superimposed on chronic hypertension, delivered Current Visit: Yes Status: Acute Plan to address problem: Continue with care on labor and delivery until mag infusion discontinued. Continue with mag infusion. - Due to be turned off @ 1320. Continue to monitor blood pressures. Continue to watch for s/sx of worsening pre elcampsia. Transfer to mother if patient remains stable. Subjective - Subjective Date of service: 07/04/21 Principal diagnosis: s/p , cHTN superimposed preeclampsia, Mag infusion Interval history: Denies PABLO, Blurred vision, spots before her eyes, chest pain, shortness of breath, upper abdominal pain, feeling lightheaded and dizzy. Patient reports: appetite normal, pain well controlled, flatus : doing well Objective - Vital Signs Latest vital signs: Vital Signs Temp Pulse Resp BP BP Pulse Ox Pulse Ox 07/04/21 09:50 90 99 07/04/21 09:45 89 99 07/04/21 09:43 88 98/57 07/04/21 09:40 89 99 07/04/21 09:35 89 99 07/04/21 09:30 88 99 07/04/21 09:25 89 99 07/04/21 09:20 94 H 100 07/04/21 09:15 96 H 99 07/04/21 09:13 98 H 115/70 07/04/21 09:10 94 H 99 07/04/21 09:05 92 H 99 07/04/21 09:00 92 H 99 07/04/21 08:55 104 H 99 07/04/21 08:50 87 99 07/04/21 08:45 89 99 07/04/21 08:43 89 108/68 07/04/21 08:40 87 99 07/04/21 08:35 90 99 07/04/21 08:30 92 H 98 07/04/21 08:25 97 H 99 07/04/21 08:20 103 H 98 07/04/21 08:15 99 H 99 07/04/21 08:13 93 H 138/84 07/04/21 08:09 103 H 99 07/04/21 08:05 101 H 99 07/04/21 08:00 93 H 99 03 07:55 91 H 99 07/04/21 07:50 106 H 99 07/04/21 07:45 88 100 07/04/21 07:43 91 H 116/79 07/04/21 07:40 89 100 07/04/21 07:35 91 H 100 07/04/21 07:30 92 H 99 07/04/21 07:25 90 99 07/04/21 07:23 97.7 F 16 99 07/04/21 07:20 90 99 07/04/21 07:15 87 100 07/04/21 07:13 91 H 120/79 07/04/21 07:10 92 H 99 07/04/21 07:05 86 98 07/04/21 07:00 86 98 07/04/21 06:55 84 99 07/04/21 06:50 82 99 07/04/21 06:45 82 99 07/04/21 06:43 81 108/71 07/04/21 06:40 82 99 07/04/21 06:35 89 99 07/04/21 06:30 90 99 07/04/21 06:25 90 99 07/04/21 06:20 95 H 99 07/04/21 06:15 90 99 07/04/21 06:13 93 H 106/71 07/04/21 06:10 84 99 07/04/21 06:05 82 99 07/04/21 06:00 86 99 07/04/21 05:55 93 H 98 07/04/21 05:50 92 H 99 07/04/21 05:45 90 99 07/04/21 05:43 82 105/69 07/04/21 05:40 84 98 07/04/21 05:35 85 98 07/04/21 05:30 89 98 07/04/21 05:25 86 98 07/04/21 05:20 92 H 97 07/04/21 05:15 103 H 99 07/04/21 05:13 80 101/63 07/04/21 05:10 83 98 07/04/21 05:05 79 98 07/04/21 05:00 83 99 07/04/21 04:55 83 99 07/04/21 04:50 80 100 07/04/21 04:45 86 99 07/04/21 04:43 77 109/76 07/04/21 04:40 82 99 07/04/21 04:35 86 99 07/04/21 04:30 86 99 07/04/21 04:25 93 H 99 07/04/21 04:20 78 96 07/04/21 04:15 83 96 07/04/21 04:13 84 106/69 07/04/21 04:10 84 96 07/04/21 04:05 84 96 07/04/21 04:00 83 97 07/04/21 03:55 82 96 07/04/21 03:49 89 97 07/04/21 03:44 82 97 07/04/21 03:43 92 H 117/73 07/04/21 03:42 95 H 93 07/04/21 03:39 84 97 07/04/21 03:34 83 96 07/04/21 03:29 85 98 07/04/21 03:24 88 97 07/04/21 03:19 87 98 07/04/21 03:15 92 H 98 07/04/21 03:13 85 118/76 07/04/21 03:10 84 98 07/04/21 03:05 83 97 07/04/21 03:00 89 97 07/04/21 02:54 91 H 98 07/04/21 02:49 92 H 99 07/04/21 02:44 92 H 99 07/04/21 02:39 89 99 07/04/21 02:37 16 07/04/21 02:34 89 98 07/04/21 02:30 91 H 99 07/04/21 02:24 98 H 99 07/04/21 02:19 99 H 99 07/04/21 02:14 95 H 115/68 99 07/04/21 02:09 95 H 98 07/04/21 02:05 100 H 99 07/04/21 01:59 86 98 07/04/21 01:54 85 97 07/04/21 01:50 84 97 07/04/21 01:44 87 97 07/04/21 01:43 86 84/50 07/04/21 01:39 88 97 07/04/21 01:34 97 H 98 07/04/21 01:29 85 98 07/04/21 01:24 89 98 07/04/21 01:20 93 H 98 07/04/21 01:15 90 98 07/04/21 01:09 97 H 99 07/04/21 01:04 93 H 99 07/04/21 01:00 96 H 99 07/04/21 00:55 95 H 99 07/04/21 00:50 94 H 98 07/04/21 00:44 91 H 99 07/04/21 00:43 95 H 101/57 07/04/21 00:39 92 H 99 07/04/21 00:35 99 H 98 07/04/21 00:29 92 H 98 07/04/21 00:25 97 H 98 07/04/21 00:19 95 H 98 07/04/21 00:15 94 H 98 07/04/21 00:09 98 H 98 07/04/21 00:04 99 H 99 07/03/21 23:59 102 H 98 07/03/21 23:54 101 H 98 07/03/21 23:50 104 H 97 0303 23:45 97 H 99 07/03/21 23:43 100 H 110/67 07/03/21 23:40 88 98 03 23:35 92 H 98 07/03/21 23:29 90 96 0303 23:24 89 96 0303 23:19 91 H 98 07/03/21 23:14 90 97 03 23:13 88 16 100/58 100/58 97 0303 23:09 90 97 0303 23:04 90 97 0303 22:59 91 H 97 03 22:54 89 97 03/03 22:49 88 97 0303 22:44 85 98 0303 22:43 86 104/63 0303 22:39 95 H 97 03 22:34 98 H 99 0303 22:29 91 H 96 07/03/21 22:24 90 96 0303 22:19 94 H 96 03 22:14 88 97 0303 22:13 86 18 116/72 116/72 97 07/03/21 22:09 89 97 07/03/21 22:04 84 98 07/03/21 21:59 87 97 07/03/21 21:54 91 H 99 07/03/21 21:49 93 H 99 07/03/21 21:44 90 98 07/03/21 21:43 90 119/77 07/03/21 21:39 95 H 99 07/03/21 21:36 91 H 123/86 07/03/21 21:35 16 07/03/21 21:34 97 H 98 07/03/21 21:29 103 H 99 07/03/21 21:24 93 H 98 07/03/21 21:19 107 H 99 07/03/21 21:14 104 H 16 123/86 123/86 97 07/03/21 21:09 101 H 98 07/03/21 21:04 97 H 98 07/03/21 20:59 100 H 98 07/03/21 20:54 96 H 98 07/03/21 20:49 110 H 98 07/03/21 20:44 99 H 99 07/03/21 20:43 96 H 16 120/74 120/74 98 07/03/21 20:39 102 H 98 07/03/21 20:34 101 H 97 07/03/21 20:29 97 H 98 07/03/21 20:24 100 H 97 07/03/21 20:19 100 H 97 07/03/21 20:14 99 H 97 07/03/21 20:13 98 H 16 101/63 101/63 97 07/03/21 20:09 97 H 97 07/03/21 20:04 101 H 98 07/03/21 19:59 97 H 96 07/03/21 19:54 98 H 96 07/03/21 19:49 96 H 96 07/03/21 19:44 98 H 96 07/03/21 19:43 100 H 17 102/61 102/61 96 07/03/21 19:39 100 H 96 07/03/21 19:34 102 H 97 07/03/21 19:29 102 H 99 07/03/21 19:24 100 H 98 07/03/21 19:19 99 H 98 07/03/21 19:15 99 07/03/21 19:14 94 H 99 03/03/22 19:13 97.7 F 93 H 16 125/77 125/77 99 07/03/21 19:09 101 H 99 07/03/21 19:04 94 H 99 07/03/21 18:59 97 H 98 07/03/21 18:54 100 H 98 07/03/21 18:49 99 H 98 07/03/21 18:44 107 H 99 07/03/21 18:43 99 H 126/87 07/03/21 18:39 101 H 98 07/03/21 18:34 100 H 98 07/03/21 18:29 108 H 98 07/03/21 18:24 102 H 99 07/03/21 18:21 100 H 137/94 07/03/21 18:19 101 H 137/94 98 07/03/21 18:14 109 H 99 07/03/21 18:09 104 H 98 07/03/21 18:04 104 H 97 07/03/21 18:00 98.1 F 07/03/21 17:59 106 H 98 07/03/21 17:54 108 H 98 07/03/21 17:49 107 H 98 07/03/21 17:44 109 H 98 07/03/21 17:39 107 H 98 07/03/21 17:34 106 H 99 07/03/21 17:29 106 H 98 07/03/21 17:24 109 H 98 07/03/21 17:19 114 H 99 07/03/21 17:14 113 H 99 07/03/21 17:13 111 H 138/88 07/03/21 17:09 92 H 97 07/03/21 17:04 89 97 07/03/21 16:59 93 H 96 07/03/21 16:54 93 H 97 07/03/21 16:49 102 H 97 07/03/21 16:44 103 H 98 07/03/21 16:43 98 H 121/84 07/03/21 16:39 97 H 97 07/03/21 16:34 106 H 98 07/03/21 16:29 105 H 99 07/03/21 16:24 117 H 99 07/03/21 16:19 99 H 98 07/03/21 16:14 111 H 120/82 99 07/03/21 16:09 101 H 96 07/03/21 16:04 106 H 97 07/03/21 15:59 101 H 97 07/03/21 15:54 106 H 96 07/03/21 15:49 105 H 96 07/03/21 15:44 111 H 98 07/03/21 15:43 106 H 130/83 07/03/21 15:39 119 H 98 07/03/21 15:34 113 H 98 07/03/21 15:29 107 H 98 07/03/21 15:24 116 H 97 07/03/21 15:19 119 H 97 07/03/21 15:15 18 07/03/21 15:14 103 H 97 07/03/21 15:13 112 H 126/75 07/03/21 15:09 111 H 98 07/03/21 15:04 101 H 128/76 97 07/03/21 14:59 106 H 97 07/03/21 14:54 107 H 98 07/03/21 14:49 106 H 96 07/03/21 14:44 105 H 97 07/03/21 14:43 109 H 139/101 07/03/21 14:39 107 H 98 07/03/21 14:34 102 H 96 07/03/21 14:29 113 H 97 07/03/21 14:24 114 H 98 07/03/21 14:19 117 H 98 07/03/21 14:15 115 H 160/90 07/03/21 14:14 115 H 98 07/03/21 14:09 119 H 98 07/03/21 14:04 107 H 96 07/03/21 13:59 107 H 97 07/03/21 13:54 118 H 97 07/03/21 13:49 118 H 98 07/03/21 13:44 123 H 98 07/03/21 13:39 121 H 98 07/03/21 13:36 121 H 139/77 07/03/21 13:34 125 H 98 07/03/21 13:29 132 H 97 07/03/21 13:24 140 H 97 07/03/21 13:22 146 H 177/86 07/03/21 13:19 145 H 95 07/03/21 13:14 124 H 98 07/03/21 13:09 118 H 97 07/03/21 13:07 108 H 141/99 07/03/21 13:04 114 H 98 07/03/21 13:03 105 H 93 07/03/21 12:59 110 H 97 07/03/21 12:55 105 H 94 07/03/21 12:54 104 H 96 07/03/21 12:51 100 H 128/79 07/03/21 12:49 112 H 97 07/03/21 12:48 108 H 91 07/03/21 12:44 109 H 97 07/03/21 12:39 101 H 95 07/03/21 12:37 106 H 155/104 07/03/21 12:34 112 H 98 07/03/21 12:29 114 H 97 07/03/21 12:24 117 H 97 07/03/21 12:21 108 H 129/84 07/03/21 12:19 105 H 96 07/03/21 12:14 103 H 96 07/03/21 12:09 110 H 97 07/03/21 12:07 105 H 132/84 07/03/21 12:04 113 H 96 07/03/21 12:00 97.8 F 07/03/21 11:59 100 H 96 07/03/21 11:54 109 H 96 07/03/21 11:51 109 H 128/79 07/03/21 11:49 107 H 96 07/03/21 11:44 103 H 95 07/03/21 11:39 102 H 95 07/03/21 11:36 104 H 127/84 07/03/21 11:34 110 H 97 07/03/21 11:30 105 H 94 07/03/21 11:29 104 H 95 07/03/21 11:24 111 H 95 07/03/21 11:23 96 H 94 07/03/21 11:21 106 H 128/84 07/03/21 11:19 96 H 94 07/03/21 11:18 100 H 94 07/03/21 11:14 96 H 95 07/03/21 11:09 109 H 97 07/03/21 11:07 100 H 117/73 07/03/21 11:04 102 H 96 07/03/21 10:59 103 H 95 07/03/21 10:55 107 H 93 07/03/21 10:54 98 H 96 07/03/21 10:49 107 H 97 07/03/21 10:44 112 H 97 07/03/21 10:40 101 H 113/71 07/03/21 10:39 98 H 97 07/03/21 10:34 108 H 97 07/03/21 10:29 114 H 97 07/03/21 10:25 103 H 111/65 07/03/21 10:24 100 H 96 07/03/21 10:19 100 H 96 07/03/21 10:14 102 H 96 07/03/21 10:11 96 H 108/68 07/03/21 10:09 103 H 95 07/03/21 10:04 94 H 97 07/03/21 09:59 100 H 94 07/03/21 09:56 97 H 132/85 Intake and Output 07/03/21 07/04/21 07/04/21 22:59 06:59 14:59 Intake Total 1000 938.333 Output Total 4975 1550 Balance -3975 938.333 -1550 Intake: IV 1000 938.333 Lactated Ringers 1,000 ml 1000 @ 125 mls/hr IV DIRECT JERO Rx#:[id number] MAGNESIUM SULFATE 40GM/ 938.333 1000ML 40 gm In 1,000 ml @ 2 GM/HR 50 mls/hr IV DIRECT JERO Rx#:[id number] Output: Urine 4975 1550 Indwelling Catheter 1775 550 Uretheral ([place]) 1600 Void 1600 1000 Other: Total, Output Amount 1600 550 Weight 153 lb 0.013 oz - Exam Breasts: Present: deferred Cardiovascular: Present: Normal S1, Normal S2 Lungs: Present: Clear to auscultation Abdomen: Present: normal appearance, soft Vulva: both: normal Uterus: Present: normal, firm Extremities: Present: normal Deep Tendon Reflex Grade: Normal +2 - Labs Labs: Abnormal lab results 07/03/21 07/03/21 07/04/21 Range/Units 15:08 20:42 00:26 Hgb (10.1-14.3) gm/dl Magnesium 5.10 H 5.50 H 5.80 H (1.7-2.3) mg/dL 07/04/21 07/04/21 Range/Units 05:49 05:49 Hgb 9.9 L (10.1-14.3) gm/dl Magnesium 6.10 H (1.7-2.3) mg/dL
[2021-07-04] MEDS: PRENATAL VIT27-FE FUMARATE-FOLIC ACID VIT TAB PO SCH (10:22)
[2021-07-04] MEDS: DOCUSATE SODIUM 100 MG CAP PO SCH ×2 (10:22→22:03)
[2021-07-04] MEDS: FERROUS SULFATE 325 MG TAB PO SCH (10:22)
[2021-07-04] MEDS: LACTATED RINGERS 1,000 ML IV SCH (10:30)
--- NOTE | 2021-07-04 17:37 | Electrocardiograph Report ---
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
--- NOTE | 2021-07-05 05:20 | Discharge Summary ---
Providers - Providers Date of Admission: 07/02/21 14:37 Date of discharge: 07/05/21 Attending physician: RICCARDO CASSIDY Primary care physician: RICCARDO CASSIDY Hospitalization Reason for admission: induction of labor Delivery: Episiotomy: none Laceration: other (Labial abrasions. ) Other procedures: none complications: none Discharge diagnosis: delivery (36.6 wks) [place] baby: male Pertinent studies: Pt denies PABLO, blurred vision, spots before her eyes, chest pain, shortness of breath, and upper abdominal pain. We discussed should any of these symptoms occur, she will need to call the labor relations supervisor provider immediately. We also discussed taking blood pressure medication as prescribed, coming to the office in one week for a blood pressure check, and how to take proper blood pressure at home. Explained that the blood pressure medication may be discontinued if her blood pressures are WNL. Hospital course: S: Pt doing well. Voiding, ambulating, and passing flatus okay. O: VSS. BP ranges have been 107-120's/60-70's. H/H 9.9/30.3, asymptomatic anemia from delivery. Fundus firm, minimal bleeding noted. A: 25 y.o. s/p @ late d/t GDM and Pre E. In good condition . P: Discharge home with instructions. Pt to schedule son's circumcision in the office in 1 week. Pt to schedule her blood pressure check in the office in 1 week. Condition at discharge: Good Disposition: 01 HOME / SELF CARE / HOMELESS - Discharge Diagnoses (1) Tachycardia Status: Acute (2) Pre-eclampsia superimposed on chronic hypertension, delivered Status: Acute Plan - Discharge Medications Prescriptions: Docusate Sodium [Colace] 100 mg PO BID PRN #60 capsule PRN Reason: Constipation Lidocain2.5%/Prilocai2.5% [Emla] 1 applic TP ONCE #30 tube Ferrous Sulfate [Feosol 325 MG tab] 325 mg PO QDAY #30 tablet labetaloL [Labetalol 100mg TAB] 100 mg PO BID #60 labetaloL [Labetalol 200mg TAB] 200 mg PO BID #60 Ibuprofen [Motrin] 800 mg PO Q8HR PRN #20 tablet PRN Reason: Pain, Moderate (4-6) - Provider Discharge Summary Activity: routine, no sex for 6 weeks, no heavy lifting 4 weeks, no strenuous exercise Diet: routine Instructions: routine Additional instructions: [] Smoking cessation referral if applicable(refer to patient education folder for contact #) [] Refer to [facility] Booklet Call your doctor immediately for: * Fever > 100.5 * Heavy vaginal bleeding ( >1 pad per hour) * Severe persistent headache * Shortness of breath * Reddened, hot, painful area to leg or breast * Drainage or odor from incision. * Please take your blood pressure at home once a day. * If your blood pressure is 160/100 or greater, please call the labor relations supervisor provider and await further instructions. * If you develop a PABLO, blurred vision, spots before your eyes, chest pain, shortness of breath or upper abdominal pain, call the office immediately. * Keep incision clean and dry at all times and follow doctor's instructions regarding bathing/showering - Follow up plan Follow up: RICCARDO CASSIDY MD [Primary Care Provider] - 7 Days (Congratulations! Please schedule a blood pressure check in the office in 1 week. Please schedule your son's circumcision appoinment in 1 week in the office. You have been prescribed EMLA cream for your son's circumcision. Please do not use this cream at home but bring it with you to your son's circumcision appointment. Should you have any questions or concerns after discharge, please call the office at [phone]. )
[2021-07-05] MEDS: DOCUSATE SODIUM 100 MG CAP PO SCH (08:33)
[2021-07-05] MEDS: PRENATAL VIT27-FE FUMARATE-FOLIC ACID VIT TAB PO SCH (08:34)
[2021-07-05] MEDS: FERROUS SULFATE 325 MG TAB PO SCH (08:34)
[2021-07-05] MEDS: IBUPROFEN 800 MG TAB PO SCH (08:35)
[2021-07-05 08:50] VITALS: BP 128/87
== END 2021-07-05 13:57 | disposition home or self-care (01) | DRG 774 ==
LOC: TRG 14:35 → LD 14:36 → TRG 17:31 → OB 07-04 16:02
PROVIDERS: ADMIT Obstetrics & Gynecology; ATTEND Obstetrics & Gynecology
PROC: 10E0XZZ Delivery of Products of Conception, External Approach (ICD-10-PCS; principal; 2021-07-03)
PROC: 10907ZC Drainage of Amniotic Fluid, Therapeutic from Products of Conception, Via Natural or Artificial Opening (ICD-10-PCS; 2021-07-03)
PROC: 3E033VJ Introduction of Other Hormone into Peripheral Vein, Percutaneous Approach (ICD-10-PCS; 2021-07-03)
PROC: 3E0234Z Introduction of Serum, Toxoid and Vaccine into Muscle, Percutaneous Approach (ICD-10-PCS; 2021-07-04)
DX: O24.420 Gestational diabetes mellitus in childbirth, diet controlled (principal); O99.893 Other specified diseases and conditions complicating puerperium; Z3A.36 36 weeks gestation of pregnancy; Z20.822 Contact with and (suspected) exposure to COVID-19; Z23 Encounter for immunization; O11.4 Pre-existing hypertension with pre-eclampsia, complicating childbirth; O69.81X0 Labor and delivery complicated by cord around neck, without compression, not applicable or unspecified; O70.0 First degree perineal laceration during delivery; R00.0 Tachycardia, unspecified; O90.81 Anemia of the puerperium; Z37.0 Single live birth
CPT/HCPCS: 36415; 59025; 81001; 82565; 82570; 82962; 83615; 83735; 84156; 84450; 84460; 84550; 85014; 85018; 85027; 86592; 86850; 86900; 86901; 88307; 93005; 93010; 96360; 99211; G0378; G0463; J0595; J2300; J2405; J2590; J3475; J7120; U0003